=== PATIENT | male | born 1975 | race African-American/Black ===

== ENCOUNTER 2018-09-17 08:34 | Inpatient (IN) ==
[2018-09-17] MEDS ORDERED: MOTRIN PO PRN (08:39)
[2018-09-17] MEDS ORDERED: SENOKOT PO PRN (08:39)
[2018-09-17] MEDS ORDERED: LIBRIUM PO PRN (08:39)
[2018-09-17] MEDS ORDERED: ZOFRAN IV PRN (08:39)
[2018-09-17] MEDS ORDERED: NICODERM PATCH TD PRN (08:39)
[2018-09-17] MEDS ORDERED: BENTYL PO PRN (08:39)
[2018-09-17] MEDS ORDERED: ROBAXIN PO PRN (08:39)
[2018-09-17] MEDS ORDERED: D5W 1,000 ML IV PRN (08:39)
[2018-09-17] MEDS ORDERED: SINEMET 25/100 PO PRN (08:39)
[2018-09-17] MEDS ORDERED: PHENOBARBITAL IV PRN (08:39)
[2018-09-17] MEDS ORDERED: TUBERSOL ID ONE (08:39)
[2018-09-17] MEDS ORDERED: DULCOLAX PR PRN (08:39)
[2018-09-17] MEDS ORDERED: TYLENOL PO PRN (08:39)
[2018-09-17] MEDS ORDERED: DESYREL PO PRN (08:39)
[2018-09-17] MEDS ORDERED: IMODIUM PO PRN (08:39)
[2018-09-17] MEDS ORDERED: ATARAX PO PRN (08:39)
[2018-09-17 09:46] LABS: HEMATOCRIT 40.3 % (42.0-52.0); HEMOGLOBIN 13.2 g/dL (14.0-18.0); MCH 29.7 PG (27-31); MCHC 32.8 g/dL (33-37); MCV 90.6 FL (81-99); MPV 8.9 FL (7.4-10.4); RBC 4.45 XMIL (4.7-6.1); RDW 13.5 % (11.5-14.5); WBC 6.49 X1000 (4.8-10.8)
[2018-09-17 10:04] LABS: INR 0.86; PROTIME 12.2 Seconds (11.0-16.0)
[2018-09-17 10:09] LABS: AMYLASE 126 U/L (20-200); LIPASE 134 U/L (13-60)
[2018-09-17 10:11] LABS: AGAP 8; ALBUMIN 3.8 g/dL (3.5-5.0); ALKALINE PHOSPHATASE 78 U/L (32-122); BUN 13 mg/dL (8-22); CALCIUM 8.9 mg/dL (8.8-10.2); CHLORIDE 104 mmol/L (98-107); COSMO 282; ESTIMATED GFR > 60; GLUCOSE 73 mg/dL (70-104); GOT 36 U/L (10-34); GPT 41 U/L (10-44); POTASSIUM 4.3 mmol/L (3.5-5.1); SODIUM 142 mmol/L (136-145); TCO2 30 mmol/L (25-35); TOTAL PROTEIN 6.7 g/dL (6.3-8.3)
[2018-09-17] MEDS: VITAMIN B-1 PO SCH (11:11)
[2018-09-17] MEDS: THERA M PLUS PO SCH (11:11)
[2018-09-17] MEDS: FOLIC ACID PO SCH (11:11)
[2018-09-17] MEDS: SUBOXONE 2 MG/0.5 MG FILM SL SCH ×2 (11:11→20:36)
[2018-09-17] MEDS: ZOFRAN ODT PO PRN (20:38)
[2018-09-17] MEDS: SEROQUEL PO PRN (20:40)
[2018-09-17] MEDS: MAALOX PLUS LIQUID PO PRN (20:48)
[2018-09-18] MEDS: PROTONIX PO SCH (06:14)
[2018-09-18] MEDS: VITAMIN B-1 PO SCH (08:02)
[2018-09-18] MEDS: THERA M PLUS PO SCH (08:02)
[2018-09-18] MEDS: FOLIC ACID PO SCH (08:02)
[2018-09-18] MEDS: SUBOXONE 2 MG/0.5 MG FILM SL SCH ×2 (08:03→20:49)
[2018-09-18] MEDS: ZOFRAN ODT PO PRN (08:11)
[2018-09-18] MEDS: MAALOX PLUS LIQUID PO PRN (18:41)
[2018-09-18] MEDS: SEROQUEL PO PRN (21:05)
--- NOTE | 2018-09-18 22:49 | PROGRESS NOTE ---
DATE: 09/18/2018 SUBJECTIVE: Patient notes that he is feeling tremendously better. States he has not felt this well in quite some time. He denies any fevers or chills. Denies any dysuria or urinary frequency. PHYSICAL EXAMINATION: Vital Signs: Reviewed. General: Patient is awake, alert. He is in no respiratory distress. His withdrawal symptoms seem to have improved. HEENT: Normocephalic. Neck: Supple. Cardiovascular: Regular rate. Chest: Clear. Abdomen: Soft. Extremities: Moves all extremities. ASSESSMENT: 1. Nausea and vomiting. 2. Abdominal pain. 3. Myalgias. 4. Paresthesias. 5. Paroxysmal sweating. 6. Opiate abuse, withdrawal and stabilization. PLAN: We will continue patient in the hospital. He is currently debating over whether to go to further inpatient or stay on Suboxone. States that he is feeling tremendously better on Suboxone and certainly needs to be able to work to support himself and his family. We will continue counseling. Continue education. Further orders as needed. cc: Herbert Hardy MD
[2018-09-18 23:45] LABS: UR AMPHETAMINES QUAL NONE DETECTED (NONE DETECT); UR BARBITUATES QUAL NONE DETECTED (NONE DETECT); UR BENZODIAZEPIN QUAL NONE DETECTED (NONE DETECT); UR COCAINE QUAL PRESUMPTIVE POSITIVE (NONE DETECT); UR METHADONE QUAL NONE DETECTED (NONE DETECT); UR METHAMPHETAMINE QUAL NONE DETECTED (NONE DETECT)
[2018-09-18 23:46] LABS: UR CANNABINOIDS QUAL PRESUMPTIVE POSITIVE (NONE DETECT); UR OPIATES QUAL NONE DETECTED (NONE DETECT); UR OXYCODONE QUAL NONE DETECTED (NONE DETECT); UR PCP QUAL NONE DETECTED (NONE DETECT); UR PROPOXYPHENE QUAL NONE DETECTED (NONE DETECT); UR TCA QUAL PRESUMPTIVE POSITIVE (NONE DETECT)
[2018-09-19] MEDS: PROTONIX PO SCH ×2 (04:43→06:12)
[2018-09-19 07:55] VITALS: BP 137/71
[2018-09-19] MEDS: VITAMIN B-1 PO SCH (09:11)
[2018-09-19] MEDS: FOLIC ACID PO SCH (09:11)
[2018-09-19] MEDS: SUBOXONE 2 MG/0.5 MG FILM SL SCH (09:11)
[2018-09-19] MEDS: THERA M PLUS PO SCH (09:11)
--- NOTE | 2018-09-20 14:43 | DISCHARGE SUMMARY ---
ADMISSION DATE: 09/17/2018 DISCHARGE DATE: 09/19/2018 DISCHARGE DIAGNOSES: 1. Nausea and vomiting. 2. Abdominal pain. 3. Myalgias. 4. Paresthesias. 5. Paroxysmal sweating. 6. Opiate abuse, withdrawal, and stabilization. 7. Cocaine abuse, withdrawal, and stabilization. CONSULTATIONS: None. PROCEDURES: None. BRIEF HOSPITAL COURSE: The patient is a 43-year-old male who presented to [facility] program secondary to polysubstance use and abuse which, unfortunately, has created social and professional issues. He currently is homeless as he had been kicked out of his house due to his drug use. While in the hospital, he was placed on Suboxone. He notes that he has had a great improvement. He actually is feeling better. He is eating better. He has talked to his who will allow him back in the house. Thankfully, the patient had an uneventful hospital course. He was actually weaned down to 2 mg of Suboxone and continued to feel well. DISPOSITION: Patient will be discharged home on 2 mg twice daily of Suboxone. Discussed with him how to wean over the next several weeks. If he is unable to wean, then he will follow up outpatient with treatment facility of choice. Discussed that he needs outpatient life counseling as well as drug counseling. He needs to avoid persons, places, and situations in which he has been using and abusing in the past. Hopefully, he can wean down and convert over to [*]for continued medication assisted therapy. cc: Herbert Hardy MD
== END 2018-09-19 11:30 | disposition home or self-care (01) | DRG 897 ==
LOC: P.MEDSURG 08:34
PROVIDERS: ADMIT Family Medicine; ATTEND Family Medicine
CPT/HCPCS: 80053; 80104; 80301; 80305; 80307; 80320; 82055; 82150; 83690; 85027; 85610; 86580; A9270; G0431; G0434; G0477; G0480; G6040